=== PATIENT | female | born 1990 | race Caucasian/White ===

== ENCOUNTER 2018-07-23 21:02 | Emergency (ER) | payer OTHER ==
--- NOTE | 2018-07-23 21:35 | ER Document Report ---
ED General - General Chief Complaint: Abdominal Pain Stated Complaint: ABDOMINAL PAIN Time Seen by Provider: 07/23/18 21:08 Notes: Patient is a 28-year-old female presenting to the emergency department complaining of generalized stabbing and intermittently dull periumbilical abdominal pain. Patient states pain started this morning has been constant all day. Patient denies any vomiting, diarrhea, fever, dysuria, vaginal discharge. Patient states last menstrual period was June 28. Past medical history: None Medications: Oral control Allergies: Doxycycline Surgical history: Tonsillectomy, breast augmentation Patient denies cigarette smoking, illicit drug use, admits to occasional EtOH use. TRAVEL OUTSIDE OF THE [place] IN LAST 30 DAYS: No Past Medical History - General Information source: Patient - Social History Smoking Status: Never Smoker Frequency of alcohol use: Occasional Drug Abuse: None Lives with: Family Family History: Reviewed & Not Pertinent Review of Systems - Review of Systems Constitutional: denies: Fever, Weight gain, Weight loss EENT: No symptoms reported Cardiovascular: No symptoms reported Respiratory: No symptoms reported Gastrointestinal: See HPI Genitourinary: See HPI Female Genitourinary: See HPI Musculoskeletal: No symptoms reported Skin: No symptoms reported Hematologic/Lymphatic: No symptoms reported Neurological/Psychological: No symptoms reported Physical Exam - Vital signs Vitals: Temp Pulse Resp BP Pulse Ox 98.5 F 72 18 133/86 H 99 07/23/18 21:07 07/23/18 21:07 07/23/18 21:07 07/23/18 21:07 07/23/18 21:07 - Notes Notes: GENERAL: Alert, interacts well. No acute distress. HEAD: Normocephalic, atraumatic. EYES: Pupils equal, round, and reactive to light. Extraocular movements intact. ENT: Oral mucosa moist, tongue midline. NECK: Full range of motion. Supple. Trachea midline. LUNGS: Clear to auscultation bilaterally, no wheezes, rales, or rhonchi. No respiratory distress. HEART: Regular rate and rhythm. No murmur ABDOMEN: Soft, Non-distended. Bowel sounds present in all 4 quadrants. Mild epigastric abdominal pain, no McBurney's point tenderness, no Phan sign. EXTREMITIES: Moves all 4 extremities spontaneously. No edema, normal radial and dorsalis pedis pulses bilaterally. No cyanosis. BACK: no cervical, thoracic, lumbar midline tenderness. No saddle anesthesia, normal distal neurovascular exam. No CVA tenderness bilaterally NEUROLOGICAL: Alert and oriented x3. Normal speech. cranial nerves II through XII grossly intact PSYCH: Normal affect, normal mood. SKIN: Warm, dry, normal turgor. No rashes or lesions noted. Course - Re-evaluation Re-evalutation: 07/23/18 23:02 Patient's labs show no signs of leukocytosis, no signs of anemia, no electrolyte abnormalities. Urine shows no signs of infection, or . Discussed this at length with patient at bedside. She states treatments in the emergency room have helped her discomfort. States it is now mild periumbilical pain with slight radiation to epigastrium. Patient continues without Phan sign, no McBurney's point tenderness. Discussed giving the patient a GI cocktail for Carafate. Patient wishes to refuse this treatment at this time. States she has Pepcid at home and she will take some. Discussed potential CT imaging of her abdomen Discussed potential CT imaging of her abdomen and the patient wishes to refuse at this time. States she thinks it may just be cramps from her perio. That is supposed to start on July 28. Patient states she intermittently does have umbilical abdominal pain when she gets her period. Discussed periumbilical abdominal pain moving to right lower quadrant could be signs of appendicitis. Discussed close follow-up with primary care provider or return to the emergency room. Patient is asking to be discharged at this time. 07/23/18 23:06 - Vital Signs Vital signs: Temp Pulse Resp BP Pulse Ox 98.5 F 72 18 133/86 H 99 07/23/18 21:07 07/23/18 21:07 07/23/18 21:07 07/23/18 21:07 07/23/18 21:07 - Laboratory Result Diagrams: 07/23/18 21:29 07/23/18 21:29 Laboratory results interpreted by me: 07/23/18 07/23/18 07/23/18 21:29 21:29 21:29 Plt Count 110 L Glucose 119 H Ur Leukocyte Esterase TRACE H Urine Ascorbic Acid 40 H Discharge - Discharge Clinical Impression: Periumbilical abdominal pain Condition: Stable Disposition: HOME, SELF-CARE Instructions: Abdominal Pain ([facility]), Observation for Appendicitis ([facility]) Additional Instructions: As we discussed you have been seen and treated in the emergency department for periumbilical abdominal pain and epigastric pain. Your labs show no signs of infection, bleeding, urinary tract infection or . You should follow- up with your primary care provider in the next 24-48 hours. Please return to the emergency room should your abdominal pain start moving to her right lower side. Please return to the emergency room for any other concerning symptoms.
[2018-07-23 21:57] LABS: ABSOLUTE EOSINOPHILS # (AUTO) 0.2 10^3/uL (0.0-0.6); ABSOLUTE LYMPHOCYTES (AUTO) 1.8 10^3/uL (0.5-4.7); ABSOLUTE MONOCYTES (AUTO) 0.7 10^3/uL (0.1-1.4); ABSOLUTE NEUT (AUTO) 3.6 10^3/uL (1.7-8.2); BASOPHILS % (AUTO) 0.1 % (0-2); EOSINOPHILS % (AUTO) 3.9 % (0-6); HEMATOCRIT 43.7 % (36.0-47.0); LYMPHOCYTES % (AUTO) 28.4 % (13-45); MEAN CORPUSCULAR HGB CONC 34.3 g/dL (32.0-36.0); MEAN CORPUSCULAR VOLUME 84 fl (80-97); MONOCYTES % (AUTO) 11.2 % (3-13); PLATELET COUNT 110 10^3/uL (150-450); RED BLOOD COUNT 5.18 10^6/uL (3.72-5.28); RED CELL DISTRIBUTION WIDTH 12.8 % (11.5-14.0); SEGMENTED NEUTROPHILS % (AUTO) 56.4 % (42-78); TOTAL CELLS COUNTED % (AUTO) 100 %; WHITE BLOOD COUNT 6.4 10^3/uL (4.0-10.5)
[2018-07-23 22:01] LABS: ALANINE AMINOTRANSFERASE 22 U/L (9-52); ALBUMIN 4.2 g/dL (3.5-5.0); ALKALINE PHOSPHATASE 52 U/L (38-126); ANION GAP 14 (5-19); ASPARTATE AMINO TRANSFERASE 23 U/L (14-36); BILIRUBIN,DIRECT 0.1 mg/dL (0.0-0.4); BILIRUBIN,TOTAL 0.2 mg/dL (0.2-1.3); BLOOD UREA NITROGEN 13 mg/dL (7-20); CALCIUM 9.5 mg/dL (8.4-10.2); CARBON DIOXIDE 24 mmol/L (22-30); CHLORIDE 104 mmol/L (98-107); GLUCOSE 119 mg/dL (75-110); LIPASE 162.7 U/L (23-300); POTASSIUM 4.1 mmol/L (3.6-5.0); SODIUM 141.8 mmol/L (137-145); TOTAL PROTEIN 6.9 g/dL (6.3-8.2)
[2018-07-23 22:04] LABS: AMORPHOUS SEDIMENT,URINE 1+ /HPF; APPEARANCE,URINE CLOUDY; BILIRUBIN,URINE NEGATIVE (NEGATIVE); COLOR,URINE YELLOW; GLUCOSE, URINE NEGATIVE (NEGATIVE); KETONES,URINE NEGATIVE (NEGATIVE); LEUKOCYTE ESTERASE,URINE TRACE (NEGATIVE); NITRITE,URINE NEGATIVE (NEGATIVE); PROTEIN,URINE NEGATIVE (NEGATIVE); URINE SPECIFIC GRAVITY 1.018; UROBILINOGEN,URINE NEGATIVE mg/dL (<2.0)
[2018-07-23] MEDS ORDERED: ONDANSETRON HCL INJ/PF 4 MG/2 ML SDV IV ONE (22:17)
[2018-07-23] MEDS ORDERED: MORPHINE SULFATE 10 MG/ML INJ IV ONE (22:17)
[2018-07-23 23:16] VITALS: BP 122/75
== END 2018-07-23 23:14 | disposition home or self-care (01) ==
LOC: ER 21:02
DX: R10.33 Periumbilical pain (principal); Z79.3 Long term (current) use of hormonal contraceptives
CPT/HCPCS: 99284; 96374; 96375; 36415; 83690; 85025; 81025; 80053; 81001; J2270; J2405